=== PATIENT | female | born 1955 | race African-American/Black ===

== ENCOUNTER 2017-05-25 18:55 | Emergency (ER) | payer OTHER ==
[~2017-05-25] VITALS: Ht 162.6 cm; Wt 72.6 kg
== END 2017-05-25 22:00 | disposition home or self-care (01) ==
LOC: ED 18:55
DX: M19.072 Primary osteoarthritis, left ankle and foot (principal); Z79.84 Long term (current) use of oral hypoglycemic drugs; Z79.891 Long term (current) use of opiate analgesic; Z79.899 Other long term (current) drug therapy